=== PATIENT | male | born 1960 | race Caucasian/White ===

== ENCOUNTER 2017-09-10 00:54 | Inpatient (IN) | payer OTHER ==
[~2017-09-10] VITALS: Ht 172.7 cm; Wt 115.7 kg
[~2017-09-10 00:54] MED LIST: ABILIFY15 M1 PO; ASPIRIN EC325 M2 PO; CELEXA20 M1 PO; COLACE100 M1 PO; DEPAKOTE500 M1 PO; DILAUDID2 M1 PO; MIRALAX17 G1 PO; MS CONTIN15 M3 PO; OXYCODONE HCL5 M2 PO; PROTONIX20 M1 PO
--- NOTE | 2017-09-10 13:08 | Admission Core Measures ---
Acute Coronary Syndrome (CM) ACS Core Measures Acute Coronary Syndrome Diagnosis No Congestive Heart Failure (NEW) CHF Core Measures Congestive Heart Failure Diagnosis No Cerebrovascular Accident CVA Core Measures CVA/TIA Diagnosis No Venous Thromboembolism VTE Core Yayo (View Protocol) VTE Risk Factors Surgery No Mechanical VTE Prophylaxis d/t N/A MechProphylax Ordered No VTE Pharm Prophylaxis d/t NA PharmProphylax ordered Problem List As ranked by this Provider includes Assessment & Plan 1. Heterotopic ossification of bone HOME MEDS Home Med List Aripiprazole (Abilify) 15 MG TABLET 1 TAB PO DAILY DEPRESSION (Reported) Citalopram Hydrobromide (Celexa) 20 MG TABLET 1 TAB PO DAILY DEPRESSION ( Reported) Divalproex Sodium (Depakote) 500 MG TABLET.DR 3 TAB PO DAILY DEPRESSION ( Reported) Oxycodone HCl 5 MG CAPSULE 1 CAP PO 4XDP PAIN (Reported)
[2017-09-10] MEDS ORDERED: DILAUDID2 M1 PO (13:10)
[2017-09-10] MEDS ORDERED: INDOMETHACIN25 M1 PO (13:10)
[2017-09-10] MEDS ORDERED: COLACE100 M1 PO (13:10)
[2017-09-10] MEDS ORDERED: ASPIRIN EC81 M1 PO (13:10)
[2017-09-10] MEDS ORDERED: MS CONTIN15 M3 PO (13:10)
[2017-09-10] MEDS ORDERED: MIRALAX17 G1 PO (13:12)
--- NOTE | 2017-09-10 13:16 | Patient Discharge Instructions ---
Discharge Instructions General Discharge Information You were seen/treated for: Right hip pain related to heterotopic ossification following total hip arthroplasty You had these procedures: Excision of heterotopic ossification right hip Watch for these problems: Increasing pain despite the use of pain medication Increasing redness, warmth or swelling Drainage of any type from incision Inability to bear weight on operative leg Persistent nausea and vomiting Fever greater than 101.5 degrees Do not soak the wound: Yes No bath, but you may shower: Yes Other wound care: Please keep wound clean and dry. No ointments or lotions of any type on or near incision at any time. No exceptions. Your dressing will be changed by your nurse on the second day after your surgery. Daily dry dressing changes are recommended each day thereafter. Do not soak your wound in a bath or pool at any time until otherwise indicated by your surgeon. You may shower, please dry wound immediately after shower with a clean towel. Special Instructions: Constipation: Pain medication can cause constipation. Your surgeon has recommended that you take Colace and miralax each day. You may discontinue this medication if you develop loose stool or diarrhea. If you wish to continue this medication, it is available over the counter. If you are unable to move your bowels after several days, if you are unable to pass gas and are developing bloating, nausea, or vomiting as a result, please contact your doctor. Diet Continue normal diet: Yes Recommended Diet: Regular Activity Full Activity/No Limits: No Activity Self Limited: Yes Pounds, do NOT lift more than: 10 Acute Coronary Syndrome Inclusion Criteria At DC or during hospital stay patient has or had the following: ACS DIAGNOSIS No Discharge Core Measures Meds if any: Prescribed or Continued at Discharge Meds if any: NOT Prescribed or Continued at Discharge Congestive Heart Failure Inclusion Criteria At DC or during hospital stay patient has or had the following: CHF DIAGNOSIS No Discharge Core Measures Meds if any: Prescribed or Continued at Discharge Meds if any: NOT Prescribed or Continued at Discharge Cerebrovascular accident Inclusion Criteria At DC or during hospital stay patient has or had the following: CVA/TIA Diagnosis No Discharge Core Measures Meds if any: Prescribed or Continued at Discharge Meds if any: NOT Prescribed or Continued at Discharge Venous thromboembolism Inclusion Criteria VTE Diagnosis No VTE Type NONE VTE Confirmed by (Test) NONE Discharge Core Measures - Per Current guidelines, there needs to be overlap - treatment for the first 5 days of Warfarin therapy. - If discharged on Warfarin prior to 5 days of - overlap therapy, the patient will need to be - assessed for post discharge needs including - *Post discharge parental anticoagulation - *Warfarin and/or parental anticoagulation education - *Follow up date to check INR post discharge At least 5 days overlap therapy as Inpatient No Meds if any: Prescribed or Continued at Discharge Note: Overlap Therapy is Warfarin and Anticoagulant Meds if any: NOT Prescribed or Continued at Discharge
--- NOTE | 2017-09-10 13:19 | Surgical Discharge Summary ---
Visit Information Visit Dates Admission Date: 09/10/17 Discharge Date: 09/12/17 History of Present Illness Chief Complaint: Right hip pain and decreased range of motion due to heterotopic ossification following total hip arthroplasty Medical History Neurological: NONE EENT: NONE Cardiovascular: NONE Respiratory: NONE Gastrointestinal: NONE Hepatic: NONE Renal: NONE Musculoskeletal: osteoarthritis Psychiatric: depression Endocrine: NONE Blood Disorders: anemia Cancer(s): NONE DISC SANDER/Reproductive: NONE History of MRSA: No History of VRE: No History of CDIFF: No Isolation History: Standard Influenza Vaccine: 12/31/16 Surgical History Pertinent Surgical History: hip replacement, FINGER AMPS L HAND Psychosocial History Who Do You Live With? Significant Other Services at Home: None What is Your Primary Language? Occitan Review of Systems: See H&P Hospital Course Course Attending Physician: Cristino Ta MD [facility] Course: Patient was admitted to the hospital for a resection of heterotopic ossification following a total hip replacement 6 months prior. The procedure was tolerated well and patient was transferred to a general surgical floor. Diet was advanced and tolerated. The patient was evaluated and treated by physical therapy. At the time of hospital discharge, the vital signs were stable, neurovascular status was intact, and pain was controlled with the use of oral pain medications. Allergies: Coded Allergies: No Known Allergies (02/27/17) Disposition Summary Disposition Principal Diagnosis: Heterotopic ossification right hip Additional Diagnosis: None Discharge Disposition: home health services Discharge Instructions General Discharge Information Code Status: Full Code Patient's Diet: Regular, advance as tolerated Patient's Activity: WBAT Follow-Up Instructions/Appts: Follow up with Dr. Ta in 6 weeks from date of surgery. Please call office to arrange &/or confirm this appointment. Medications at Discharge Discharge Medications: Stop taking the following medications: Oxycodone HCl (Oxycodone HCl) 5 MG CAPSULE ORAL 4 times daily as needed Continue taking these medications: Divalproex Sodium (Depakote) 500 MG TABLET. 3 Tablet ORAL DAILY Comments: Last Taken: 09/12/17 Time: 0830 AM Aripiprazole (Abilify) 15 MG TABLET 1 Tablet ORAL DAILY Comments: Last Taken: 09/12/17 Time: 0830 AM Citalopram Hydrobromide (Celexa) 20 MG TABLET 1 Tablet ORAL DAILY Comments: Last Taken: 09/12/17 Time: 0830 AM Start taking the following new medications: Aspirin (Ecotrin*) 81 MG TABLET.DR 1 Tablet ORAL TWICE DAILY Qty = 60 No Refills Comments: Last Taken:09/12/17 Time:0830 AM Docusate Sodium (Colace) 100 MG CAPSULE 1 Capsule ORAL TWICE DAILY Qty = 14 No Refills Instructions: DISCONTINUE USE IF YOU DEVELOP LOOSE STOOL OR DIARRHEA Comments: Last Taken:09/12/17 Time:0830 AM Hydromorphone HCl (Dilaudid) 2 MG TABLET 1-2 Tablet ORAL EVERY 4-6 HOURS NEEDED as needed for PAIN Qty = 36 No Refills Comments: Last Taken:09/11/17 Time:5:30 PM Indomethacin (Indomethacin) 25 MG CAPSULE 1 Capsule ORAL THREE TIMES DAILY Qty = 30 No Refills Instructions: with food Comments: Last Taken:09/12/17 Time:0830 AM Morphine Sulfate (Ms Contin) 15 MG TABLET.ER 1 Tablet ORAL TWICE DAILY Qty = 6 No Refills Comments: NOT GIVEN IN HOSPITAL Polyethylene Glycol 3350 (Miralax) 17 GRAM POWD.PACK 1 Packet ORAL DAILY Qty = 7 No Refills Instructions: dissolve in water, DISCONTINUE USE IF YOU DEVELOP LOOSE STOOL OR DIARRHEA Comments: Last Taken:09/12/17 Time:0830 AM
--- NOTE | 2017-09-10 15:05 | Operative Report ---
Operative/Inv Procedure Report Surgery Date: 09/10/17 Name of Procedure: 1. Right hip radical debridement of heterotopic bone 2. 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 After induction of spinal anesthesia and administration of appropriate pre-operative antibiotics, the patient was positioned supine on the operating room table and all bony prominences were well padded. After performing a surgical timeout, the right lower extremity was prepped and draped in the usual sterile fashion. Utilizing the previous incision, an extensile direct anterior approach was made to the right hip. The incision was carried sharply through superficial soft tissues to the level of the fascia. Meticulous hemostasis was maintained with Bovie electocautery. The fascia over the tensor fascia kalyn muscle was opened which immediately exposed underlying heterotopic bone. Heterotopic bone completely obscured the anterior aspect of the joint. It was bridging from the subtrochanteric region of the femur all the way to the pelvis anteriorly as well as laterally. Exposure carefully continued until the inferior and medial borders of the heterotopic bone mass were identified. The lateral extent of the anterior mass was also exposed. Utilizing an osteotome large sections of the heterotopic bone mass were cleaved off until the joint could be exposed. Now having the joint as a reference the true bony landmarks were identified to aid in removing the appropriate bone. Dissection was carried laterally until the heterotopic bone could be removed from the tensor. Exposure continued anteriorly very carefully until all of the anterior bridging bone was removed. Attention was then turned to the inner trochanteric region. There was bridging bone between the tip of the trochanter and the bony pelvis bold at the tip and posteriorly. This was removed with the use of an osteotome and rongeurs. At this point the hip was dislocated and all remaining bone posteriorly was accessed and removed. Once this was accomplished the patient was noted to have excellent range of motion to flexion and rotation. It was noted however that now that the radical debulking was complete, the hip was unstable in extension and external rotation. At this point the femoral head was disimpacted and the acetabular liner was removed. The liner was replaced with a new Philip Trident size 36 mm 0 eccentric insert. A new ceramic +5 head was impacted onto the well cleaned trunnion. Hip was reduced and put through a full range motion and found to be quite stable. The interarticular space was copiously irrigated with sterile saline. Topical TXA was utilized. A medium Hemovac drain was left in the intra -articular space. 1 g of vancomycin powder was left in the articular space. The periarticular soft tissues were infilitrated with Marcaine. The fascial layer was closed with interrupted #1 vicryl suture and the skin was re-approximated with interrupted 2-0 vicryl. The skin was closed with a running 3-0 V-Lock suture. Steri-strips and a sterile dressing were applied. The patient was awakened and taken to the recovery room in satisfactory condition.
[2017-09-10 15:51] LABS: ABSOLUTE BASOPHIL COUNT 0 /CUMM (0.0-0.2); ABSOLUTE EOSINOPHIL COUNT 0 /CUMM (0.0-0.7); ABSOLUTE GRANULOCYTE CT 5.2 /CUMM (1.4-6.5); ABSOLUTE LYMPH COUNT 0.8 /CUMM (1.2-3.4); ABSOLUTE MONOCYTE COUNT 0.2 /CUMM (0.10-0.60); BASOPHIL % 0.2 % (0.0-2.0); EOSINOPHIL % 0.2 % (0-5); MEAN CORPUSCULAR HGB 25.3 PG (27.0-31.0); MEAN CORPUSCULAR HGB CONC 32.5 G/DL (33.0-37.0); MEAN CORPUSCULAR VOLUME 77.6 FL (80.0-94.0); MEAN PLATELET VOLUME 8.2 FL (7.4-10.4); PLATELET COUNT 224 /CUMM (130-400); RBC DISTRIBUTION WIDTH 16.4 % (11.5-14.5); RED BLOOD CELL CT 3.86 /CUMM (4.70-6.10); WHITE BLOOD CELL COUNT 6.2 /CUMM (4.8-10.8)
[2017-09-10 15:53] LABS: GRANULOCYTE % 83.5 % (42.2-75.2)
--- NOTE | 2017-09-10 16:40 | PN- Orthopedic ---
Subjective Subjective: Postop check: Patient with mild soreness in the right hip, otherwise he is feeling well. He has no other complaints. No acute events postoperatively. He received 1 unit of packed red blood cells intraoperatively due to intraoperative blood loss Objective Vital Signs and I&Os Heart rate 54, blood pressure 106/60, afebrile Physical Exam: Well-developed well-nourished no apparent distress. HEENT: Atraumatic, extraocular motion intact Neck: Supple, no lymphadenopathy Respiratory: No respiratory distress Extremities: No edema RIGHT lower extremity hip dressing in place, Dressing clean dry and intact Moderate right thigh swelling Hemovac drain in place, small amount of bloody drainage noted No shortening or rotation, leg lengths equal Hip range of motion is limited and without unexpected pain Neurovascularly intact distally Bilateral calves are supple, nontender. Neuro: Alert and oriented x3 Psych: Mood affect normal, normal memory normal judgment. Skin: Warm and dry, no rash on exposed skin Results Last 48 Hours of Labs: Laboratory Tests 09/10 1535 Hematology CBC w Diff NO MAN DIFF REQ WBC (4.8 - 10.8 /CUMM) 6.2 RBC (4.70 - 6.10 /CUMM) 3.86 L Hgb (14.0 - 18.0 G/DL) 9.8 L Hct (42 - 52 %) 30.0 L MCV (80.0 - 94.0 FL) 77.6 L MCH (27.0 - 31.0 PG) 25.3 L MCHC (33.0 - 37.0 G/DL) 32.5 L RDW (11.5 - 14.5 %) 16.4 H Plt Count (130 - 400 /CUMM) 224 MPV (7.4 - 10.4 FL) 8.2 Gran % (42.2 - 75.2 %) 83.5 H Lymphocytes % (20.5 - 51.1 %) 13.5 L Monocytes % (1.7 - 9.3 %) 2.6 Eosinophils % (0 - 5 %) 0.2 Basophils % (0.0 - 2.0 %) 0.2 Absolute Granulocytes (1.4 - 6.5 /CUMM) 5.2 Absolute Lymphocytes (1.2 - 3.4 /CUMM) 0.8 L Absolute Monocytes (0.10 - 0.60 /CUMM) 0.2 Absolute Eosinophils (0.0 - 0.7 /CUMM) 0 Absolute Basophils (0.0 - 0.2 /CUMM) 0 Assessment/Plan Assessment/Plan Postop day #0 status post Right hip radical debridement of heterotopic bone and right hip revision secondary to 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 Continue Hemovac drain post op xray pending Pain medication as needed. Out of bed Physical therapy, weightbearing as tolerated IV fluids Regular diet Intraoperative acute blood loss anemia, status post transfusion of 1 unit packed red blood cells intraoperatively: Currently stable, follow a.m. labs Aspirin 81mg po bid for DVT prophylaxis Indomethacin 25mg po tid to prevent heterotopic ossification Plan for radiation therapy tomorrow to prevent further HO ALPS for DVT prophylaxis Regular home meds Dressing change postop day 2 Core Measures Venous Thromboembolism VTE Risk Factors Surgery No Mechanical VTE Prophylaxis d/t N/A MechProphylax Ordered No VTE Pharm Prophylaxis d/t NA PharmProphylax ordered
--- NOTE | 2017-09-10 17:10 | RADIOLOGY REPORT ---
EXAMINATION: XR HIP, RIGHT CLINICAL INFORMATION: Status post excision to R hip (H/O R THR) COMPARISON: 02/28/2017 TECHNIQUE: AP and crosstable lateral views of the right hip. FINDINGS: Prosthetic components of the right total hip arthroplasty are appropriately aligned. No periprosthetic fracture. Gas from recent surgery is present in the surrounding soft tissues. Drainage tubing is in place. Heterotopic ossification is present around the greater again. IMPRESSION: Appropriate alignment of the right total hip prosthesis. No acute findings.
[2017-09-10 17:30] VITALS: BP 118/62
[2017-09-10 21:30] VITALS: BP 120/82
[2017-09-11 02:00] VITALS: BP 110/68
[2017-09-11 06:40] VITALS: BP 122/76
--- NOTE | 2017-09-11 07:39 | PN- Orthopedic ---
Subjective Subjective: No acute events overnight, pain is controlled on p.o. Dilaudid. He is voiding. No fever no flulike illness Objective Vital Signs and I&Os Vital Signs Date Time Temp Pulse Resp B/P B/P Pulse O2 O2 Flow FiO2 Mean Ox Delivery Rate 09/11 0640 98.3 89 16 122/76 96 Room Air 09/11 0200 98.1 78 20 110/68 94 Room Air 09/10 2130 97.4 77 16 120/82 96 Room Air 09/10 1730 97.4 63 18 118/62 97 Room Air Intake & Output 09/11 0800 09/11 0000 09/10 1600 09/10 0800 09/10 0000 09/09 1600 Intake Total 765 1005 Output Total 1300 1360 Balance -535 -355 Intake, IV 525 525 Intake, Oral 240 480 Number 0 Bowel Movements Output, 500 60 Drainage Output, Urine 800 1300 Patient 255 lb 255 lb Weight Weight Bed scale Measurement Method Hemovac drain output overnight: 500 cc Physical Exam: Well-developed well-nourished no apparent distress. HEENT: Atraumatic, extraocular motion intact Neck: Supple, no lymphadenopathy Respiratory: No respiratory distress Extremities: No edema RIGHT lower extremity hip dressing in place, Dressing clean dry and intact Hemovac drain in place with approximately 20 cc of bloody drainage noted Moderate thigh swelling No signs of infection. No shortening or rotation Hip range of motion is limited and without unexpected pain Quad function is intact, able to extend knee against gravity with the hip flexed Neurovascularly intact distally Bilateral calves are supple, nontender. Neuro: Alert and oriented x3 Psych: Mood affect normal, normal memory normal judgment. Skin: Warm and dry, no rash on exposed skin Results Last 48 Hours of Labs: Laboratory Tests 09/11 09/10 0704 1535 Chemistry Sodium Pending Potassium Pending Chloride Pending Carbon Dioxide Pending Anion Gap Pending BUN Pending Creatinine Pending BUN/Creatinine Ratio Pending Hematology CBC w Diff Pending NO MAN DIFF REQ WBC (4.8 - 10.8 /CUMM) Pending 6.2 RBC (4.70 - 6.10 /CUMM) Pending 3.86 L Hgb (14.0 - 18.0 G/DL) Pending 9.8 L Hct (42 - 52 %) Pending 30.0 L MCV (80.0 - 94.0 FL) Pending 77.6 L MCH (27.0 - 31.0 PG) Pending 25.3 L MCHC (33.0 - 37.0 G/DL) Pending 32.5 L RDW (11.5 - 14.5 %) Pending 16.4 H Plt Count (130 - 400 /CUMM) Pending 224 MPV (7.4 - 10.4 FL) Pending 8.2 Gran % (42.2 - 75.2 %) 83.5 H Lymphocytes % (20.5 - 51.1 %) 13.5 L Monocytes % (1.7 - 9.3 %) 2.6 Eosinophils % (0 - 5 %) 0.2 Basophils % (0.0 - 2.0 %) 0.2 Absolute Granulocytes (1.4 - 6.5 /CUMM) 5.2 Absolute Lymphocytes (1.2 - 3.4 /CUMM) 0.8 L Absolute Monocytes (0.10 - 0.60 /CUMM) 0.2 Absolute Eosinophils (0.0 - 0.7 /CUMM) 0 Absolute Basophils (0.0 - 0.2 /CUMM) 0 Recent Imaging Studies: PATIENT: SHARAN RUSHING PRESENT AGE: 56 PATIENT ACCOUNT NO: [id number] : 61 LOCATION: [facility] ORDERING PHYSICIAN: Cristino Ta MD SERVICE DATE: 09/10/17 EXAM TYPE: RAD - XRY-HIP 2-3 VIEWS, RIGHT EXAMINATION: XR HIP, RIGHT CLINICAL INFORMATION: Status post excision to R hip (H/O R THR) COMPARISON: 02/28/2017 TECHNIQUE: AP and crosstable lateral views of the right hip. FINDINGS: Prosthetic components of the right total hip arthroplasty are appropriately aligned. No periprosthetic fracture. Gas from recent surgery is present in the surrounding soft tissues. Drainage tubing is in place. Heterotopic ossification is present around the greater again. IMPRESSION: Appropriate alignment of the right total hip prosthesis. No acute findings. DICTATED BY: Wallace Garsia MD DATE/TIME DICTATED:09/10/171703 WASH TEST CHECKER:JO DATE/TIME TRANSCRIBED:09/10/171703 CONFIDENTIAL, DO NOT COPY WITHOUT APPROPRIATE AUTHORIZATION. 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 Continue Hemovac drain due to high output overnight post op xray ok Pain medication as needed. Out of bed Physical therapy, weightbearing as tolerated DC IV fluids Regular diet follow a.m. labs Aspirin 81mg po bid for DVT prophylaxis Indomethacin 25mg po tid to prevent heterotopic ossification Plan for radiation therapy tomorrow to prevent further HO today at 11am ALPS for DVT prophylaxis Regular home meds Dressing change postop day 2 Dispo: to home tomorrow w vna Core Measures Venous Thromboembolism VTE Risk Factors Surgery No Mechanical VTE Prophylaxis d/t N/A MechProphylax Ordered No VTE Pharm Prophylaxis d/t NA PharmProphylax ordered
[2017-09-11 08:17] LABS: ABSOLUTE BASOPHIL COUNT 0 /CUMM (0.0-0.2); ABSOLUTE EOSINOPHIL COUNT 0 /CUMM (0.0-0.7); ABSOLUTE GRANULOCYTE CT 3.1 /CUMM (1.4-6.5); ABSOLUTE MONOCYTE COUNT 0.6 /CUMM (0.10-0.60); BASOPHIL % 0.3 % (0.0-2.0); EOSINOPHIL % 0.8 % (0-5); GRANULOCYTE % 53.9 % (42.2-75.2); MEAN CORPUSCULAR HGB 25.2 PG (27.0-31.0); MEAN CORPUSCULAR HGB CONC 32.5 G/DL (33.0-37.0); MEAN CORPUSCULAR VOLUME 77.5 FL (80.0-94.0); PLATELET COUNT 233 /CUMM (130-400); RBC DISTRIBUTION WIDTH 16.5 % (11.5-14.5); RED BLOOD CELL CT 3.62 /CUMM (4.70-6.10); WHITE BLOOD CELL COUNT 5.8 /CUMM (4.8-10.8)
--- NOTE | 2017-09-11 13:19 | Cons- Radiation Oncology ---
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 This is following a total hip replacement 6 months prior. HPI: Patient underwent a right total hip arthroplasty in February, secondary to primary osteoarthritis. He did well until April, at which time he experienced difficulties with mobilization and pain. He was diagnosed with heterotopic bone ossifications. At this time he presented with significant formation resulting in pain and difficulties with mobilization. Preoperative imaging demonstrated the presence of exuberant heterotopic ossifications beginning at the anterior superior iliac spine extending anterior and lateral right done to the proximal diaphysis. He was admitted to undergo radical debridement. He has now postop day 0 and doing well. He has been referred for prophylactic radiation therapy for prevention. 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 It was bridging from the subtrochanteric region of the femur all the way to the pelvis anteriorly as well as laterally. Exposure carefully continued until the inferior and medial borders of the heterotopic bone mass were identified. The lateral extent of the anterior mass was also exposed. Utilizing an osteotome large sections of the heterotopic bone mass were cleaved off until the joint could be exposed. Now having the joint as a reference the true bony landmarks were identified to aid in removing the appropriate bone. Dissection was carried laterally until the heterotopic bone could be removed from the tensor. Exposure continued anteriorly very carefully until all of the anterior bridging bone was removed. Attention was then turned to the inner trochanteric region. There was bridging bone between the tip of the trochanter and the bony pelvis bold at the tip and posteriorly. This was removed with the use of an osteotome and rongeurs. At this point the hip was dislocated and all remaining bone posteriorly was accessed and removed. Once this was accomplished the patient was noted to have excellent range of motion to flexion and rotation. It was noted however that now that the radical debulking was complete, the hip was unstable in extension and external rotation. At this point the femoral head was disimpacted and the acetabular liner was removed. The liner was replaced with a new Philip Trident size 36 mm 0 eccentric insert. A new ceramic +5 head was impacted onto the well cleaned trunnion. Hip was reduced and put through a full range motion and found to be quite stable. 09/10/17: RAD - XRY-HIP 2-3 VIEWS, RIGHTProsthetic components of the right total hip arthroplasty are appropriately aligned. No periprosthetic fracture. Gas from recent surgery is present in the surrounding soft tissues. Drainage tubing is in place. Heterotopic ossification is present around the greater again. IMPRESSION: Appropriate alignment of the right total hip prosthesis. No acute findings. PAST MEDICAL HISTORY: osteoarthritis,depression, anemia PAST SURGICAL HISTORY: Right total hip arthroplasty 02/2017, finger surgery ( left hand) PAST RADIATION HISTORY: None Allergies/Medications Allergies: Coded Allergies: No Known Allergies (02/27/17) Home Med List: Aripiprazole (Abilify) 15 MG TABLET 1 TAB PO DAILY DEPRESSION (Reported) Aspirin (Ecotrin*) 81 MG TABLET.DR 1 TAB PO BID ANTICOAGULATION Citalopram Hydrobromide (Celexa) 20 MG TABLET 1 TAB PO DAILY DEPRESSION ( Reported) Divalproex Sodium (Depakote) 500 MG TABLET.DR 3 TAB PO DAILY DEPRESSION ( Reported) Docusate Sodium (Colace) 100 MG CAPSULE 1 CAP PO BID CONSITPATION DISCONTINUE USE IF YOU DEVELOP LOOSE STOOL OR DIARRHEA Hydromorphone HCl (Dilaudid) 2 MG TABLET 1-2 TAB PO Q4-6 PRN PRN PAIN Indomethacin 25 MG CAPSULE 1 CAP PO TID ANTI-INFLAMMATORY with food Morphine Sulfate (Ms Contin) 15 MG TABLET.ER 1 TAB PO BID PAIN Oxycodone HCl 5 MG CAPSULE 1 CAP PO 4XDP PAIN (Reported) Polyethylene Glycol 3350 (Miralax) 17 GRAM POWD.PACK 1 PAC PO DAILY CONSTIPATION dissolve in water, DISCONTINUE USE IF YOU DEVELOP LOOSE STOOL OR DIARRHEA Current Medications: Current Medications Sig/Priya Start time Last Medication Dose Route Stop Time Status Admin Acetaminophen 1,000 MG Q6 09/10 1800 AC 09/11 IV 09/11 1201 0606 Acetaminophen 0 .STK-MED ONE 09/10 0942 DC PO Acetaminophen 975 MG ONCE 09/10 0000 DC PO 09/10 2359 Aripiprazole 15 MG DAILY 09/11 09 AC PO Aspirin Buffered 81 MG BID 09/10 2100 AC 09/10 PO 2120 Cefazolin Sodium 2 GM IQ8 09/11 0400 DC 09/11 N/A 1 UNIT IV 09/11 0429 0319 Cefazolin Sodium 2 GM IQ8 09/10 1600 DC 09/10 N/A 1 UNIT IV 09/11 0029 1947 Cefazolin Sodium 2,000 MG ONCE 09/10 0000 DC IV 09/10 2359 Citalopram 20 MG DAILY 09/11 09 AC Hydrobromide PO Dextrose/Sodium 1,000 ML .[id number] 09/10 1745 DC 09/11 Chloride IV 06 Divalproex Sodium 1,500 MG DAILY 09/11 09 AC PO Docusate Sodium 100 MG BID 09/10 2100 AC 09/10 PO 2120 Famotidine 20 MG DAILY 09/11 0900 AC PO Fentanyl Citrate 100 MCG .STK-MED ONE 09/10 1006 DC IM 09/10 1007 Hydromorphone HCl 2 MG Q4P PRN 09/10 1745 AC 09/10 PO 2000 Hydromorphone HCl 4 MG Q4P PRN 09/10 1745 AC 09/11 PO 0533 Hydromorphone HCl 2 MG .STK-MED ONE 09/10 1648 DC IM 09/10 1649 Hydromorphone HCl 2 MG .STK-MED ONE 09/10 1547 DC IM 09/10 1548 Hydromorphone HCl 2 MG .STK-MED ONE 09/10 1522 DC IM 09/10 1523 Hydromorphone HCl 4 MG .STK-MED ONE 09/10 1006 DC IM 09/10 1007 Indomethacin Sodium 25 MG TID 09/10 1400 AC 09/10 PO 2121 Midazolam HCl 0 .STK-MED ONE 09/10 1112 DC .ROUTE Midazolam HCl 2 MG .STK-MED ONE 09/10 1007 DC IM 09/10 1008 Morphine Sulfate 2 MG Q2P PRN 09/10 1745 AC 09/10 IV 2121 Ondansetron HCl 4 MG Q6P PRN 09/10 1745 AC IV Oxycodone HCl 0 .STK-MED ONE 09/10 0942 DC PO Oxycodone HCl 10 MG ONCE 09/10 0000 DC PO 09/10 2359 Polyethylene Glycol 17 GM DAILY 09/11 0900 AC PO Promethazine HCl 12.5 MG Q6P PRN 09/10 1745 AC IV 09/17 1314 Tranexamic Acid 2,[address] 1006 DC IV 09/10 1007 Review of Systems Review of Systems: Review of Systems CONSTITUTIONAL Negative for weight loss, fever/chills, night sweats. [place] STATUS: 100% HEENT: Negative for blurred or double vision. Negative for ringing, hoarseness or dysphagia. + Reading and driving glasses CARDIOVASCULAR: Negative for fatigue, chest pains, palpitations or claudication. RESPIRATORY Negative for cough, dyspnea, orthopnea, or hemoptysis. GASTROINTESTINAL Negative for anorexia, indigestion, nausea, vomiting, constipation or diarrhea. GENITOURINARY: Negative for frequency, nocturia, or hematuria. ENDOCRINE: Negative for diabetes, thyroid, and pituitary problems. MUSCULOSKELETAL: h/o osteoarthritis, right hip pain/immobility SKIN: Negative for itching, bruising, or rashes. NEUROLOGIC: Negative for headaches, dizziness, numbness, tingling, mental status changes. PSYCHIATRIC: Negative for anxiety + history of depression. HEMATOLOGIC: Negative for history or anemia or thrombocytopenia. PAIN: Post operative pain -. Rates pain 2/10 on pain scale with pain medication. 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 Surgical History Surgical History: hip replacement, FINGER AMPS L HAND Psychosocial History Services at Home: None Smoking Status: Unknown If Ever Smoked Exam & Diagnostic Data Vital Signs and I&O Vital Signs Date Time Temp Pulse Resp B/P B/P Pulse O2 O2 Flow FiO2 Mean Ox Delivery Rate 09/11 0640 98.3 89 16 122/76 96 Room Air 09/11 0200 98.1 78 20 110/68 94 Room Air 09/10 2130 97.4 77 16 120/82 96 Room Air 09/10 1730 97.4 63 18 118/62 97 Room Air Intake & Output 09/11 1600 09/11 0800 06/26 0000 Intake Total 765 1005 Output Total 1300 1360 Balance -535 -355 Intake, IV 525 525 Intake, Oral 240 480 Number 0 Bowel Movements Output, 500 60 Drainage Output, Urine 800 1300 Patient 255 lb 255 lb Weight Weight Bed scale Measurement Method Physical Exam Vitals: 6:40 AM T: 98.3 P: 89 R: 16 BP: 122/76 O2 SAT: 96 Weight 255 lbs GENERAL: Well appearing in no acute distress. EYES: Anicteric sclera, EOMI, PERRLA. Conjunctivae pink. ENT: Oral cavity is clear. No evidence of thrush. NECK: There is no adenopathy in the head or neck area. HEART: S1, S2 heard. There are no murmurs or rubs Patient has regular rate and rhythm. LUNGS: Clear to auscultation. No wheezes or rales. EXTREMITIES: Postoperative gear in place SKIN: There are no suspicious lesions, no nodules, no signs or infection. LYMPH NODES: No cervical, supraclavicular, axillary and inguinal adenopathy. PSYCHIATRIC: The patient is pleasant and cooperative. No overt signs on anxiety or depression. NEUROLOGICAL: Alert and oriented x3, CN 2-12 intact, Assessment/Plan Assessment: IMPRESSION/PLAN: 56 yo male s/p right total hip arthroplasty in February, secondary to primary osteoarthritis now s/p radical debridement of heterotopic ossifications involving the right hip. He is POD #0 and doing well in the postoperative setting. He presented with extensive ossifications and at risk for recurrence. Postoperative radiation therapy was therefore recommended. We discussed the role of radiation therapy in the immediate postoperative setting in hopes of preventing recurrence. We discussed undergoing simulation followed by a single dose of treatment to the area at risk. Patient tolerated the procedure and treatment well. He will be transferred back to the floor. Recommendations: Single dose RT in postoperative setting Consult Acknowledgment - Thank you for your consult request.
[2017-09-11 21:53] VITALS: BP 104/66
[2017-09-12 07:33] VITALS: BP 118/72
--- NOTE | 2017-09-12 08:42 | PN- Orthopedic ---
Subjective Subjective: Patient reports pain is controlled. He states he is tolerating a diet without nausea or vomiting, voiding, passing flatus and ambulating with PT. He offers no complaints. He is eager to go home today. Objective Vital Signs and I&Os Vital Signs Date Time Temp Pulse Resp B/P B/P Pulse O2 O2 Flow FiO2 Mean Ox Delivery Rate 09/12 0733 98.3 84 18 118/72 96 09/11 2153 97.7 82 18 104/66 95 Room Air Intake & Output 09/12 1600 09/12 0809/12 0000 09/11 1600 09/11 0809/11 0000 Intake Total 220 850 265 082 6189 Output Total 380 039 694 8321 1360 Balance -160 145 430 -535 -355 Intake, IV 100 525 525 Intake, Oral 220 850 480 240 480 Number 0 0 Bowel Movements Output, 80 55 150 500 60 Drainage Output, Urine 300 919 527 8658 Patient 255 lb 255 lb Weight Weight Bed scale Measurement Method Physical Exam: Gen - nad Cardiac - S1S2 noted Lungs - CTAB Abd - soft, nontender Ext - R hip dressing c/d/i with hv in place, 80 cc in last shift, removed, incision healing well with no signs of infection, redressed with gauze and tape, moves all extremities, compartment muscular, motor and sensory intact, no edema or calf tenderness B/L Current Medications: Current Medications Sig/Priya Start time Last Medication Dose Route Stop Time Status Admin Acetaminophen 1,000 MG Q6 09/10 1800 DC 09/11 IV 09/11 1201 1411 Aripiprazole 15 MG DAILY 09/11 09 AC 09/12 PO 0822 Aspirin Buffered 81 MG BID 09/10 2099 AC 09/12 PO 0822 Citalopram 20 MG DAILY 09/11 09 AC 09/12 Hydrobromide PO 08 Divalproex Sodium 1,500 MG DAILY 09/11 09 AC 09/12 PO 0822 Docusate Sodium 100 MG BID 09/10 2100 AC 09/12 PO 0822 Famotidine 20 MG DAILY 09/11 09 AC 09/12 PO 0822 Hydromorphone HCl 2 MG Q4P PRN 09/10 1745 AC 09/11 PO 1737 Hydromorphone HCl 4 MG Q4P PRN 09/10 1745 AC 09/11 PO 2308 Indomethacin Sodium 25 MG TID 09/10 1400 AC 09/12 PO 0822 Morphine Sulfate 2 MG Q2P PRN 09/10 1745 AC 09/10 IV 2121 Ondansetron HCl 4 MG Q6P PRN 09/10 1745 AC IV Patient Medication 1 ED ONE ONE 09/11 1530 DC Teaching ED 09/11 1531 Polyethylene Glycol 17 GM DAILY 09/11 0900 AC 09/12 PO 0822 Promethazine HCl 12.5 MG Q6P PRN 09/10 1745 AC IV 09/17 1314 Assessment/Plan Assessment/Plan 56 M POD 2 s/p right hip radical debridement of heterotopic bone and right hip revision due to right hip bony ankylosis secondary from heterotopic ossification with a single dose of radiation therapy postop who is recovering well Cont reg diet Pain regimen prn OOB w/ PT, WBAT DVT ppx - alps, asa 81 bid Indomethacin 25 tid for heterotopic ossification prevention Home meds on board Dry dressing changes daily Anticipate d/c home w/ [facility] today Will d/w Dr. Ta Core Measures Venous Thromboembolism VTE Risk Factors Surgery No Mechanical VTE Prophylaxis d/t N/A MechProphylax Ordered No VTE Pharm Prophylaxis d/t NA PharmProphylax ordered
== END 2017-09-12 11:26 | disposition home health service (06) | DRG 467 ==
LOC: 2NB 00:54 → SDA 00:54 → ENRESERV 16:09 → ENTRNSPT 16:59 → EDTRNSPTSTS 17:06 → EDTRNSPT 17:06 → 2NB 17:15 → CMPTRNSPT 17:32 → ENTRNSPT 09-12 10:56 → ENPENDDIS 09-12 11:20 → 2NB 09-12 11:26 → EDTRNSPT 09-12 11:29 → EDTRNSPTSTS 09-12 11:29 → CMPTRNSPT 09-12 11:38
PROVIDERS: Nurse Practitioner; Orthopaedic Surgery
PROC: 0QB60ZZ Excision of Right Upper Femur, Open Approach (ICD-10-PCS; principal; 2017-09-10)
PROC: 0SR904A Replacement of Right Hip Joint with Ceramic on Polyethylene Synthetic Substitute, Uncemented, Open Approach (ICD-10-PCS; principal; 2017-09-10)
PROC: 0SP90JZ Removal of Synthetic Substitute from Right Hip Joint, Open Approach (ICD-10-PCS; principal; 2017-09-10)
DX: M24.651 Ankylosis, right hip (principal); D62 Acute posthemorrhagic anemia; Z96.641 Presence of right artificial hip joint
CPT/HCPCS: 2NBP; 36415; 36592; 73502-RT; 77290-TC; 77307-TC; 77334-TC; 77336; 77412-TC; 82436; 86920; 97110-GO; 97116-GO; 97161-GP; J0131; J0690; J0735; J2550; J3490; J7042; P9016